=== PATIENT | male | born 1955 | race Caucasian/White ===

== ENCOUNTER → 2017-07-04 | Outpatient (CLI) | payer MEDICARE ==
[~2017-07-04] MED LIST: BARIUM SULFATE 148 GM POWDER ONE; BARIUM SULFATE 240 ML ORAL SUS (NECTAR) ONE
--- NOTE | 2017-07-04 15:21 | RADIOLOGY IMAGING REPORT ---
[place] [facility] [place] NAME: Will Crowell : 1955 MR: [id number] V: [id number] EXAM DATE: ORDERING PHYSICIAN: GENEVA GOODEN TECHNOLOGIST: Location: [facility] Patient: Will Crowell : 1955 Visit/Account:[id number] Date of Sevice: 07/04/2017 Exam type: ESOPH VIDEO SWALLOWING History: Dysphasia Comparison: None. Findings: The modified barium swallow was performed by the speech pathologist. Fluoroscopic assistance was pro vided. The patient received various liquids and food substances and a barium tablet. Please see the speech pathologist report for complete details. The fluoroscopy dose area product was 334.81 micro- Mckinney per meter squared. IMPRESSION: 1. As above Report Dictated By: Mckenna Mireles MD at 07/04/2017 3:17 PM Report E-Signed By: Mckenna Mireles MD at 07/04/2017 3:17 PM WSN:[id number]
--- NOTE | 2017-07-04 15:32 | SLP MODIFIED BARIUM SWALLOW ---
[*]Speech Language Pathology Modified Barium Swallow Evaluation Report Date of Evaluation: 07/04/2017 Patient Name: Will Crowell Patient : 1955 Physician: Farzaneh Foss DO Clinician: Lita Light M.S., CCC-FREIGHT BRAKEMAN BACKGROUND The patient is a 62 yr old male referred for an MBS to assess swallow structure and function as indicated by mild s/s of acute pharyngeal phase dysphagia observed during outpatient clinical swallow assessment. Pt w. pmhx significant for Parkinson's disease. Pt also w/ self-reports of suspected penetration/ aspiration, including frequent coughing/choking with solids, globus sensation, and effortful/strenuous swallows. Oxygen Supplementation: No Level of Consciousness: Non altered Cognitive/Linguistic: WNL Orientation: x4 Language: -expressive: nonaphasic -receptive: nonaphasic Speech: -non-apraxic -dysarthric Voice -WFL; some decreased loudness Non-verbal Oral Structure and Function: WFL; mildly decreased lingual ROM Pain with Swallow: Denies. MODIFIED BARIUM SWALLOW In conjunction with radiology, lateral view with trials of the following consistencies: 15 ml thin liquid, thin liquid via cup sip, pureed solids, soft solids, regular solids, mixed textures, a 1cm barium pill (cut in half). ORAL STAGE Summary: Mild oral phase dysphagia characterized by lingual pumping and vertical vs rotary chew pattern. Thin Liquids: lingual pumping Pureed Foods: lingual pumping Mechanical Soft Foods: vertical vs rotary mastication pattern; lingual pumping Regular Foods: vertical vs rotary mastication pattern; lingual pumping; trace to mild oral residue. Mixed textures: vertical vs rotary mastication pattern; lingual pumping, decreased oral containment w/ premature posterior spillage of thin material Barium pill: WFL PHARYNGEAL STAGE Summary: Mild pharyngeal phase dysphagia characterized by decreased BOT retraction, decreased hyolaryngeal excursion (adequate elevation), and decreased posterior wall movement. Although hyolaryngeal excursion was reduced, epiglottic inversion appeared WFL w/ adequate airway protection across PO trials. Pt also w/ delayed initiation of pharyngeal swallow, varying from the valleculae to the level of the pyriforms. Pharyngeal weakness resulted in variable amounts of pharyngeal residue and need for execution of multiple swallows to clear material. 15ml Thin Liquid: delayed swallow onset to the valleculae, trace to mild vallecular residue, double swallow to clear material. Score of 1 on Penetration/Aspiration Scale*: Material does not enter the airway. Thin Liquid via Cup Sip: delayed swallow onset to the valleculae, trace to mild vallecular residue, mild pyriform residue, multiple (>2) swallows to clear material. Score of 1 on Penetration/Aspiration Scale*: Material does not enter the airway. Pureed Food: minimal vallecular residue, double swallow to clear material. Score of 1 on Penetration/Aspiration Scale*: Material does not enter airway. Mechanical Soft Foods: mild vallecular and trace pyriform residue, double swallow to clear material. Score of 1 on Penetration/Aspiration Scale*: Material does not enter airway. Regular Food Consistency: moderate vallecular and mild pyriform residue, cleared to mild in valleculae w/ successive (3) sips of thins, cleared to trace amounts w/ chin tuck. Score of 1 on Penetration/Aspiration Scale*: Material does not enter airway. Mixed Food Consistency: delayed swallow onset to the valleculae 2/2 premature posterior spillage of thin liquid material while masticating soft solid. Score of 2 on Penetration/Aspiration Scale*: Material enters airway, remains above the vocal folds and is ejected. Pill: WFL. Score of 1 on Penetration/Aspiration Scale*: Material does not enter airway. *(Dolly et al. 1996) ESOPHAGEAL STAGE Peristaltic movement appears to be WNL Cervical Esophagus: Materials witnessed clearing from cervical esophagus WNL. Thoracic Esophagus: Materials witnessed clearing from upper/mid/lower thoracic esophagus WNL. LINDSEY: Not witnessed. Laryngopharyngeal Reflux (LPR) Not witnessed. No material reached proximal esophagus or was regurgitated passed UES into pharynx. BARIUM PILL: 1/2cm barium pill taken with thin liquids. No dysphagia witnessed. SUMMARY AND RECOMMENDATIONS Aspiration Risk: Mild risk for aspiration 2/2 oropharyngeal weakness and mild oropharyngeal dysphagia. Risk for aspiration is also elevated 2/2 Parkinson's diagnosis, and pt's self-report of experiencing increased s/sx of aspiration/ choking in home environment. 1. Diet: Recommend avoidance of problematic foods, added moisture w/ dry, crunchy textures. 2. Patient was provided with verbal/visual education regarding swallow anatomy and safe swallow recommendations. 3. Recommend OP speech therapy per discretion of OP FREIGHT BRAKEMAN to address identified areas of pharyngeal weakness and to minimize risk for future aspiration pneumonia/choking episodes. 4. Recommend compensatory swallow strategy training to promote bite size modification, rate modification, alternation of liquids/solids, double swallow, and consideration of chin tuck as needed to clear vallecular residue. Thank you for this referral. Please call [phone] to contact the FREIGHT BRAKEMAN. Lita Light M.S., [facility]-FRE[facility] MTDD
== END ==
LOC: RAD 01:52
PROVIDERS: ATTEND Family Medicine
DX: R13.10 Dysphagia, unspecified (principal)
CPT/HCPCS: 74230

== ENCOUNTER 2017-07-25 11:00 | Outpatient (RCR) | payer MEDICARE ==
--- NOTE | 2017-06-24 16:18 | PT INITIAL EVALUATION ---
MEDICAL DIAGNOSIS: PD G20 TREATMENT DIAGNOSIS: Same, altered gait and balance DATE OF ONSET: 02/25/92 SUBJECTIVE: Will Crowell (Jeff) presents to PT for altered gait, balance, mobility from early onset Parkinson's Disease (PD). He and his relate his gross motor movements are diminishing and now his fine motor movements and reducing. He has DBS for rigidity, not tremor, and will have it tuned up tomorrow. Dexter relates his on/off times are unpredictable. He hasn't tolerated some PD medicines. He continues with Sinemet, at night Klonopin. He relates Sinemet doesn't help his symptoms. Dexter demonstrated expressive aphasia with word recall, memory recall. Pain location is L knee and described as ache. Pain scale is 1 on a ten point pain scale. Pain is worse with and better with . REHAB PROBLEM LIST: Altered gait, balance, fall risk, impaired cognition PREVIOUS MEDICAL HISTORY: L TKA. 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 He and his live in a mobile home, tub/ shower combo (one fall out of it). Dexter relates he's sedentary, and both he and his would like to hike, bike, golf together, and have Dexter move more smoothly. OBJECTIVE: Posture: Increased thoracic kyphosis, heels 12" apart, knees locked straight, steady stance. Strength: Quads 3+/5, loss of eccentric quad control sitting in a 19" seat. Palpation: No tremors hands or feet. Mobility: Sit <> linen supply load builder one attempt without UE use. Gait: Festinating gait when looking down, freezes near mat table, chairs, then lunges to sit. Dexter ambulates independently with B LE ER 40 degrees, feet not passing each other or clearing the floor. Dynamic Gait Index 13, a high fall risk. Balance: Sy Balance Assessment 48/56, a normal fall risk. Other Objective Findings: Writhing cervical spine with exercise. No tremors. ASSESSMENT: Will Crowell presents to bradykinesia, altered gait, fall risk, expressive aphasia from early onset PD. He had apraxic head and neck movements with LSVT BIG exercises. Short Term Goals/Patient's Goals 4 weeks: Dexter transfers in/out of tub smoothly , reports 50% less freezing in tight spaces, doorways, hikes. PLAN: Patient to be seen for LSVT BIG protocol: Neuromuscular Re-ed, Gait Trg/ Balance Trg, Home Exercise Program 4x/Week for 4 Weeks Thank you for this referral. If you have any questions, comments, or concerns about this report or plan, please contact me at . [facility]
--- NOTE | 2017-06-25 08:56 | SWALLOW EVALUATION ---
SPEECH THERAPY DYSPHAGIA ASSESSMENT Physician: Dr. Farzaneh Foss Clinician: Salud Kuhn MS, [facility]-PROJECT PLANNER, Brittany Sands B.A., [facility] [place] Type of Assessment: Dysphagia Evaluation Patient: Will Crowell : 1955, 62yrs Evaluation Date: 06-24-17 BACKGROUND The patient is a 62 year old male diagnosed with Parkinsons Disease in 2004. He was referred for an ST swallow evaluation after six months of intermittent choking episodes on solid food. An ST swallow evaluation was ordered to further evaluate swallow structure and function. PREVIOUS LEVEL OF FUNCTION: Primary Medical Diagnosis: Parkinsons Medical Complications/Past Medical History: Deep Brain Stimulator LOC / Participation: alert cooperative Follows instructions: yes Orientation: oriented to person, place, time, situation Functional Communication Deficits impact swallow function/safety, or response to therapy: No VOICE Vocal Deficits: No Changes to vocal quality: denies DYSPHAGIA Dysphagia Risk Evaluation Protocol DREP: Water Swallow Test: Pass, Puree Swallow Test: Pass, Solids Swallow Test: Pass Functional Oral Intake Scale (FOIS) Level 7: Total oral intake with no restrictions Sialorrhea: Yes- reported but not observed Xerostomia: Yes- reported but not observed Oral Structure and Function: Within functional limits for speech and swallow. Pain with Swallow: Denies Respiratory/Swallow Coordination: Typically patterned (ie. exhale/swallow/ exhale) Oral Stage Oral Stage Dysphagia: No Self Feeds: Yes Compensatory Maneuvers Used: Smaller bites Assistance Required: No Comment: Pt reports taking much larger bites at home than the amount administered during trials Pharyngeal Stage Pharyngeal Stage Dysphagia: Mild s/s of acute pharyngeal stage dysphagia including globus sensation following swallow. Pharyngeal stasis suspected Compensatory Maneuvers Used: Multiple swallows, liquid wash Assistance Required: No Indication of acute aspiration witnessed or reported by patient, family or staff : Yes- reported by patient Aspiration Risk: Increased d/t s/s of penetration/aspiration including reported frequent coughing/choking with solids, globus sensation, effortful swallows Comment: Pt reported globus sensation clears with liquid wash and/or second swallow Esophageal Stage Esophageal Stage Dysphagia Indicated: Yes. Patient has LINDSEY and is currently taking medications. Reports symptoms are under control. Yes Globus Sensation at/below Suprasternal Notch: Denies ST ASSESSMENT SUMMARY DYSPHAGIA Dysphagia Risk Evaluation Protocol DREP: Water Swallow Test: Pass, Puree Swallow Test: Pass, Solids Swallow Test: Pass. Indications of oropharyngeal dysphagia include multiple swallows, globus sensation, effortful swallow Functional Oral Intake Scale (FOIS): Level 7: Total oral intake with no restrictions (swallow precautions recommended, described below) Aspiration Risk: Increased d/t s/s of penetration/aspiration including reported frequent coughing/choking with solids, globus sensation, effortful swallows. Written and verbal education provided at the time of evaluation regarding safety precautions *Recommend MBS: Yes FUNCTIONAL COMMUNICATION: Patient has functional communication tasks for independence and safety. RECOMMENDATIONS 1.Speech Therapy: The patient would benefit from ST 3wk12 to address the above described concerns. 2.Compensatory Techniques: reduce bolus size, check for oral stasis, multiple swallow, safe swallow posture (upright in chair), encourage liquid swallows every 3-4 bites to clear oral stasis, oral hygiene following meals. 3.Speech Therapy: The patient would benefit from LSVT Loud program upon completion of LSVT Big. 4.Further Evaluation: Modified Barium Swallow study PLAN OF CARE Short Term Goals 1. The patient will participate in a 12wk dysphagia exercise based therapy program to address oropharyngeal dysphagia. 2. The patient will receive safe swallow and modified diet education and demonstrate verbal/nonverbal comprehension. 3. The patient will receive education regarding oral hygiene and demonstrate verbal/nonverbal comprehension. 4. Patient will complete oral motor exercises to increase oral strength, accuracy and coordination of lingual, buccal, labial muscles for mastication and bolus manipulation of regular food consistencies without signs of oral or pharyngeal stage dysphagia. Pathologist Assistant Goals The patient will consume regular food and liquid diet without s/s of dysphagia. Patient Goals: Remain on regular diet and increase oral motor strength and accuracy related to swallowing and speech . Rehabilitation Prognosis: Good. Good family support. Thank you for this referral. Please call [phone] Salud Kuhn M.S., CCC-PROJECT PLANNER Physician Signature Date MTDD
--- NOTE | 2017-07-16 14:38 | PT PLAN OF CARE ---
Physician: Dr. Farzaneh Foss Patient is being seen: 4x/week Therapist: Tara Pennington, PT Medical Diagnosis: PD G20 Treatment Diagnosis: Same, altered gait and balance Date of Onset: 02/25/92 Date of Initial Evaluation: 06/24/17 Date patient was last seen: 07/16/17 Number of treatments: 9 Number of cancellations/No shows: 0 INTERVENTIONS: Neuromuscular Re-ed Gait Trg/Balance Trg Home Exercise Program GOALS/PATIENT'S GOAL: 4 weeks: Dexter transfers in/out of tub smoothly (not met), reports 50% less freezing in tight spaces, doorways (met), and hikes (met). Patient Compliance: Good Prognosis: Good Reasons for continuing therapy: S: Dexter doesn't recall when he takes his PD medicine. Today he had taken it one hour before PT and did the best he has done in PT so far. He went hiking with his but strayed back to his car because he was tired. O: Gait/Balance: Dynamic Gait Index 21/24, a 13% impairment. Dexter has demonstrated walking up/down hill, over grass and rocks with balance control when he's "on" with medicine, otherwise, he festinates in gait. Twenty minutes after medicine, his feet freeze, he leans forwards and he's liable to fall. If he's late on his medicine, he can break through the freezing. Sy Balance Assessment today 56/56. On "off" times, he has multiple LOB laterally or forward with self-recovery most of the time. His head writhing is reducing, his eye tracking/head movements are opposite of his line of progression. He requires cueing to change this discoordinated movement. Mobility: Sit <> spindle setter one attempt without UE use. A/P: Dexter Crowell is improving gait and balance but doesn't respond as a typical PD presentation. His outstanding scores today aren't reflective of Dexter's norm. We'll complete his 16 session of PT using LSVT BIG and then recommend 3 month intervals for return to PT. Thank you. MARCK
--- NOTE | 2017-07-24 12:20 | SLP DISCHARGE NOTE ---
SPEECH THERAPY DISCHARGE SUMMARY REPORT Patient Name: Will Crowell Date of Discharge: 07/23/2017 Patient : 1955 Clinician: Salud Kuhn M.S., CCC-LIFESTYLE COORDINATOR; Brittany Sands B.A., [facility] [place] Treatment Dx: Cognitive-Linguistic Deficits The pt has attended 10 Speech Therapy visits of initially recommended 24 visits for dysphagia therapy. ST has been addressing the following ST goals. Short Term Goals 1. The patient will participate in a 12wk dysphagia exercise based therapy program to address oropharyngeal dysphagia. Progression: Pt demonstrates success with assist during tx however he reports difficulty performing these tasks at home d/t difficulty with recall and following written instructions. 2. The patient will receive safe swallow and modified diet education and demonstrate verbal/nonverbal comprehension. Progression: Pt reported constant symptoms of heart burn with all foods and liquids. Education provided regarding limiting or eliminating problematic foods. Recommend pt talk to his physician regarding possible modifications to pharmaceutical management of symptoms. Pt reports subjective improvements in swallow status since SOC, including reduction of of choking incidents. 3. The patient will receive education regarding oral hygiene and demonstrate verbal/nonverbal comprehension. Progression: Goal met. Oral cavity appears consistently appropriately hygienic upon observation during participation in oromotor exercises. 4. Patient will complete oral motor exercises to increase oral strength, accuracy and coordination of lingual, buccal, labial muscles for mastication and bolus manipulation of regular food consistencies without signs of oral or pharyngeal stage dysphagia. Progression: Pt demonstrates success with assist during tx however he reports difficulty performing these tasks at home d/t difficulty with recall and following written instructions. DC SUMMARY DC from tx for dysphagia as of 01-23-18 The patient self reports decreased s/s of dysphagia with meals including decreased cough/choking. Pt demonstrates success with dysphagia therapy program with assist during tx however he reports difficulty performing these tasks at home d/t difficulty with recall and following written instructions. It is recommended the patient continue to follow the recommend swallow safety protocol outlined below: 1. Diet: Recommend avoidance of problematic foods, added moisture w/ dry, crunchy textures. 2. Compensatory Swallow Safety Techniques: Recommend compensatory swallow strategy training to promote -reduced bolus size liquids/solids -alternation of liquids/solids -double swallow -chin tuck as needed to clear vallecular residue. -oral hygiene following meals. FURTHER ST RECOMMENDATIONS Initiate ST evaluation and treatment to address cognitive deficits. This is expected to be a maintenance program to support the patient's continued independence and allow him to remain at home as long as possible. The patient demonstrates decreased safety awareness at home and in the community including poor medication management, difficulty following safe swallow recommendations, wandering (has become lost on several occasions), decreased independent management of high tech devices to assist with daily needs management (ie, forgetting phone at home, meds management,apps, location apps). In addition, the patient demonstrates a need to develop strategies for successfully following verbal and written instructions including medically related instructions. The patient lives at home with his spouse and it is recommended that she receive education from regarding patient current abilities and how she can assist him with areas of deficit, strategies for maintaining independent function and remaining at home as long as possible. For these reasons, speech therapy to address these needs is considered medically necessary. A POC will be developed following evaluation. Thank you for considering this matter. If you feel a referral to speech therapy is appropriate you may fax a physician's order to [facility] at FAX # [phone]. Please call [phone] to contact the LIFESTYLE COORDINATOR. Respectfully, Salud Kuhn M.S., [facility]-LIFESTYLE COORDINATOR MARCK
--- NOTE | 2017-07-25 17:20 | PT PLAN OF CARE ---
Physician: Dr. Farzaneh Foss Patient is being seen: 4x/week Therapist: Tara Pennington, PT Medical Diagnosis: PD G20 Treatment Diagnosis: Same, altered gait and balance Date of Onset: 02/25/92 Date of Initial Evaluation: 06/24/17 Date patient was last seen: 07/25/17 Number of treatments: 17 Number of cancellations/No shows: 0 INTERVENTIONS: LSVT BIG Neuromuscular Re-ed, Gait Trg/Balance Trg, Home Exercise Program GOALS/PATIENT'S GOAL: 4 weeks: Dexter transfers in/out of tub smoothly (met), reports 50% less freezing in tight spaces, doorways (met), and hikes (met). Patient Compliance: Excellent Prognosis: Good Reasons for discontinuing therapy: S: Dexter relates he moves more fluidly, freezes less and feels overall he's moving better. Posture: Increased thoracic kyphosis, heels 4" apart, knees locked straight, steady stance. Gait/Balance: Dexter now ambulates when "on" with medicine uphill, over uneven surfaces well, increased stride length. When he's in an "off" time, he freezes, festinates, writing head, no arm swing. He does have difficulty with moving his arms in movement with retro balance disturbance. There s been times Dexter's head and mouth writhing like Tardive Dyskinesia. Mobility: Dexter transfers in/out of the tub (standing) using the wall for balance. Strength: Quads 3+/5, loss of eccentric quad control sitting in a 19" seat. Palpation: No tremors hands. Mobility: Sit <> zoning assistant one attempt without UE use. A/P: Dexter Crowell has improved gait, balance, mobility, but cognitively, seems to be overusing his meds. He will continue speech for cognition, and I will DC PT to HEP. I recommend a grab bar, tub chair. I request that Dexter return in three months as he presents as a Lewy Body Dementia/atypical PD patient. Thank you. MARCK
== END 2017-07-25 18:00 | disposition home or self-care (01) ==
LOC: PT 11:00
PROVIDERS: ATTEND Family Medicine
DX: G20 Parkinson's disease (principal); R26.89 Other abnormalities of gait and mobility; R13.10 Dysphagia, unspecified; M25.562 Pain in left knee
CPT/HCPCS: 74230; 97162

== ENCOUNTER → 2017-11-10 | Outpatient (CLI) | payer MEDICARE | LOC: US 01:10 | PROVIDERS: ATTEND Family Medicine | DX: I37.1 Nonrheumatic pulmonary valve insufficiency (principal) | CPT/HCPCS: 93306 ==

== ENCOUNTER → 2017-11-11 | Outpatient (CLI) | payer MEDICARE ==
--- NOTE | 2017-11-13 16:23 | RT HOLTER TEST ---
FACILITY: [facility] PATIENT NAME: JIMENEZ BLANK : [id number] MR: [id number] V: [id number] EXAM DATE: ORDERING PHYSICIAN: GENEVA GOODEN TECHNOLOGIST: GERBER Hook-up date: 2017-11-11 10:45:00 Duration: 47:59:00 Test Indications: ABNORMAL EKG Medications: N/A 540491 QRS complexes 10 Ventricular ectopics which represent <1 % of total QRS comp. 14 Supraventricular ectopics which represent <1 % of total QRS comp. * Paced QRS complexes which represent % of total QRS comp. VENTRICULAR ECTOPY 6 Isolated 0 Bigeminal Cycles 2 Couplets 0 Runs 0 Beats in Runs * Beats LONGEST at * BPM at :: -- * Beats FASTEST at * BPM at :: -- SUPRAVENTRICULAR ECTOPY 12 Isolated 1 Couplets 0 Runs 0 Beats in Runs * Beats LONGEST at * BPM at :: -- * Beats FASTEST at * BPM at :: -- HEART RATES 40 MIN at 03:59:13 2017-11-13 65 AVG 106 MAX at 07:23:19 2017-11-13 LONGEST RR 1.520 secs at 03:45:42 2017-11-13 S-T LEVELS Channel 1 -12.800 mm MIN at 10:45:00 2017-11-11 -12.800 mm MAX at 10:45:00 2017-11-11 Channel 2 -12.800 mm MIN at 10:45:00 2017-11-11 -12.800 mm MAX at 10:45:00 2017-11-11 Channel 3 -12.800 mm MIN at 10:45:00 2017-11-11 -12.800 mm MAX at 10:45:00 2017-11-11 Sinus rhythm Sinus bradycardia Non-specific intra-ventricular conduction block Premature ventricular complexes Confirmed by SANDY CRUZ ([id number]) on 11/13/2017 4:23:22 PM Referred By: Overread By: SANDY CRUZ
== END ==
LOC: RESP 01:11
PROVIDERS: ATTEND Family Medicine
DX: R94.31 Abnormal electrocardiogram [ECG] [EKG] (principal)
CPT/HCPCS: 93225; 93226

== ENCOUNTER → 2017-12-17 | Outpatient (CLI) | payer MEDICARE | LOC: RESP 20:28 | PROVIDERS: ATTEND Family Medicine | DX: G47.33 Obstructive sleep apnea (adult) (pediatric) (principal) ==

== ENCOUNTER → 2018-02-26 | Outpatient (CLI) | payer MEDICARE | LOC: RESP 19:53 | PROVIDERS: ATTEND Family Medicine | DX: G47.33 Obstructive sleep apnea (adult) (pediatric) (principal); G47.37 Central sleep apnea in conditions classified elsewhere; G47.36 Sleep related hypoventilation in conditions classified elsewhere ==